=== PATIENT | male | born 1955 | race Caucasian/White ===

== ENCOUNTER → 2018-06-06 | Outpatient (REF) | payer BC ==
[2018-06-06 13:09] LABS: ALBUMIN 3.8 GM/DL (3.2-5.2); ALBUMIN/GLOBULIN RATIO 1.27 (1.00-1.93); ALKALINE PHOSPHATASE 68 U/L (45-117); ALT/SGPT 26 U/L (12-78); ANION GAP 10 MEQ/L (8-16); AST/SGOT 19 U/L (7-37); BILIRUBIN,TOTAL 0.6 MG/DL (0.2-1.0); BLOOD UREA NITROGEN 21 MG/DL (7-18); CALCIUM LEVEL 9.2 MG/DL (8.8-10.2); CARBON DIOXIDE LEVEL 31 MEQ/L (21-32); CHLORIDE LEVEL 105 MEQ/L (98-107); CHOLESTEROL LEVEL 176 MG/DL (<200); CHOLESTEROL RISK RATIO 3.142 (<5); GLOMERULAR FILTRATION RATE > 60.0 (>49); GLUCOSE, FASTING 84 MG/DL (70-100); HDL CHOLESTEROL 56 MG/DL (>40); LDL CHOLESTEROL 104 MG/DL (<100); NON-HDL-C 120 MG/DL; POTASSIUM SERUM 4.8 MEQ/L (3.5-5.1); SODIUM LEVEL 146 MEQ/L (136-145); TOTAL PROTEIN 6.8 GM/DL (6.4-8.2); TRIGLYCERIDES LEVEL 81 MG/DL (<150)
== END ==
LOC: M SFHCCLAY 08:41
DX: R39.12 Poor urinary stream (principal); N52.9 Male erectile dysfunction, unspecified; Z76.89 Persons encountering health services in other specified circumstances; Z13.220 Encounter for screening for lipoid disorders
CPT/HCPCS: 80053

== ENCOUNTER → 2018-06-11 | Outpatient (REF) | payer BC | LOC: M SMT 06-12 13:19 | DX: R97.20 Elevated prostate specific antigen [PSA] (principal) ==

== ENCOUNTER → 2018-06-17 | Outpatient (CLI) | payer BC ==
[~2018-06-17] MED LIST: ISOVUE-370 76% 100ML VIAL (Q9967) As Ordered
== END ==
LOC: M RAD 17:09
DX: R97.20 Elevated prostate specific antigen [PSA] (principal); K76.89 Other specified diseases of liver; N28.1 Cyst of kidney, acquired; N40.0 Benign prostatic hyperplasia without lower urinary tract symptoms; K57.30 Diverticulosis of large intestine without perforation or abscess without bleeding
CPT/HCPCS: Q9967

== ENCOUNTER → 2018-06-25 | Outpatient (CLI) | payer BC | LOC: M SMT PRO 10:02 | DX: C61 Malignant neoplasm of prostate (principal) | CPT/HCPCS: G0416 ==

== ENCOUNTER → 2018-07-02 | Outpatient (CLI) | payer BC | LOC: M RAD 09:30 | DX: R97.20 Elevated prostate specific antigen [PSA] (principal); R63.4 Abnormal weight loss; R39.89 Other symptoms and signs involving the genitourinary system | CPT/HCPCS: 78306 ==

== ENCOUNTER → 2018-07-18 | Outpatient (CLI) | payer BC | LOC: M ONCR 10:00 | DX: C61 Malignant neoplasm of prostate (principal) | CPT/HCPCS: G0463 ==

== ENCOUNTER → 2018-07-23 | Outpatient (CLI) | payer BC | LOC: M SMT 13:55 | DX: C61 Malignant neoplasm of prostate (principal) | CPT/HCPCS: 76872 ==

== ENCOUNTER 2018-09-10 10:33 | Outpatient (RCR) | payer BC ==
[2018-08-15 11:11] LABS: HEMATOCRIT 44.7 % (42.0-52.0); HEMOGLOBIN 14.8 g/dl (13.5-17.5); LYMPH % 35.7 % (24.0-44.0); MEAN CORPUSCULAR HEMOGLOBIN 31.3 pg (27.0-33.0); MEAN CORPUSCULAR HGB CONC 33.1 g/dl (32.0-36.5); MEAN CORPUSCULAR VOLUME 94.6 fl (80.0-96.0); NEUTROPHILS # 2.6 10^3/uL (1.8-7.7); NEUTROPHILS % 54.9 % (36.0-66.0); RED BLOOD COUNT 4.73 10^6/uL (4.30-6.10); WHITE BLOOD COUNT 4.8 10^3/uL (4.0-10.0)
--- NOTE | 2018-08-15 15:28 | RADONC ---
RADIATION ONCOLOGY SIMULATION NOTE DATE: 08/15/2018 CHART NUMBER: [id number] Mr. Will was taken to the CT scan for CT simulation of his prostate field. CT was accomplished without difficulty or discomfort. Radiation treatment planning is underway and radiation treatments will begin subsequently. An immobilization device was created and will be used throughout the course of treatment. It was created without difficulty or discomfort. I was physically present throughout the course of CT simulation.
--- NOTE | 2018-09-03 10:56 | RADONC ---
RADIATION ONCOLOGY PROGRESS NOTE DATE: 09/02/2018 CHART NUMBER: [id number] PROGRESS NOTE: Mr. Will is presently at a dose of 900 cGy to his prostate and is tolerating treatments quite well at this point with no complaints related to his radiation therapy. He is having no urinary or bowel difficulties and no bone pain. REVIEW OF SYSTEMS: The patient's review of systems is noncontributory. Denies nausea, vomiting, fevers, chills, night sweats, diplopia, headaches, anxiety or depression, anorexia, weight loss, visual disturbances, chest pain, urinary or bowel difficulties, bone pain, or neurological problems. PHYSICAL EXAMINATION: The patient's skin is in good condition with no evidence of moist or dry desquamation. The remainder of the physical exam remains unchanged. Mr. Will is tolerating treatments quite well and radiation will continue as scheduled.
--- NOTE | 2018-09-09 12:58 | RADONC ---
RADIATION ONCOLOGY PROGRESS NOTE DATE: 09/09/2018 CHART NUMBER: [id number] Mr. Will is presently at a dose of 1800 cGy to his prostate and is tolerating treatments quite well at this point with no complaints related to his radiation therapy. He is having no urinary or bowel difficulties and no bone pain. REVIEW OF SYSTEMS: The patient's review of systems is noncontributory. He denies nausea, vomiting, fevers, chills, night sweats, diplopia, headaches, anxiety or depression, anorexia, weight loss, visual disturbances, chest pain, urinary or bowel difficulties, bone pain or neurological problems. PHYSICAL EXAMINATION: The patient's skin is in good condition with no evidence of radiation change present. There is no moist or dry desquamation. The remainder of his physical exam remains unchanged. Mr. Will is tolerating treatments quite well and radiation will continue as scheduled.
== END 2018-09-12 ==
LOC: M ONCR 10:33
PROVIDERS: ATTEND Radiology Radiation Oncology
DX: C61 Malignant neoplasm of prostate (principal)

== ENCOUNTER → 2018-10-10 | Outpatient (RCR) | payer BC ==
--- NOTE | 2018-09-17 10:36 | RADONC ---
RADIATION ONCOLOGY PROGRESS NOTE DATE: 09/17/2018 CHART NUMBER: [id number] PROGRESS NOTE: Mr. Will is presently at a dose of 2160 cGy to his prostate and is tolerating treatments quite well at this point with no complaints related to his radiation therapy. He is having no urinary or bowel difficulties and no bone pain. REVIEW OF SYSTEMS: The patient's review of systems is noncontributory. Denies nausea, vomiting, fevers, chills, night sweats, diplopia, headaches, anxiety or depression, anorexia, weight loss, visual disturbances, chest pain, urinary or bowel difficulties, bone pain, or neurological problems. PHYSICAL EXAMINATION: The patient's skin is in good condition with no evidence of moist or dry desquamation. The remainder of his physical exam remains unchanged. Mr. Will is tolerating treatments quite well and radiation will continue as scheduled.
--- NOTE | 2018-09-25 13:13 | RADONC ---
RADIATION ONCOLOGY PROGRESS NOTE DATE OF SERVICE: 09/23/2018 CHART NUMBER: [id number]. PROGRESS NOTE: Mr. Will with a diagnosis of adenocarcinoma of the prostate is receiving local regional radiotherapy, and he has achieved a dose of 3060 cGy of an anticipated 7920 cGy. He is tolerating his radiotherapy reasonably well and denies any nausea, vomiting, diarrhea, dysuria, hematuria, or blood per rectum. The remainder of the review of systems is essentially noncontributory. EXAMINATION FINDINGS: The patient has no evidence of skin erythema nor desquamation. No palpable peripheral lymphadenopathy is appreciated. The remainder of the physical examination is unchanged. IMPRESSION: Tolerating therapy well. PLAN: Treatments to continue. MTDD
--- NOTE | 2018-10-02 07:01 | RADONC ---
RADIATION ONCOLOGY PROGRESS NOTE DATE OF SERVICE: 09/30/2018 CHART NUMBER: [id number]. PROGRESS NOTE: aMrk Will with a diagnosis of adenocarcinoma of prostate is currently receiving local regional radiotherapy, and he is at a dose of 3960 cGy of an anticipated 7920 cGy. REVIEW OF SYSTEMS: The patient denies any nausea, vomiting, dysuria, hematuria, or blood per rectum. He was experiencing some significant dysuria last week and saw Dr. Pierre Doyle who gave him some antibiotics. His dysuria has resolved. His energy level is somewhat diminished, but he is able to maintain most day-to-day activities without any alteration of his lifestyle. Skin irritation is denied. The remainder of the review of systems is noncontributory. EXAMINATION FINDINGS: The skin within the irradiated volume shows no evidence of erythema and certainly no focal desquamation. Lymphatics: No palpable peripheral lymphadenopathy is appreciated. Lungs are clear. The remainder of the physical examination is negative. IMPRESSION: Tolerating therapy reasonably well. PLAN: Treatments to continue. MTDD
[2018-10-07 12:07] LABS: APPEARANCE, URINE CLEAR (CLEAR); BACTERIA, URINE AUTO NEGATIVE (NEGATIVE); BILIRUBIN, URINE AUTO NEGATIVE (NEGATIVE); BLOOD, URINE BLOOD NEGATIVE (NEGATIVE); COLOR, URINE YELLOW (YELLOW); GLUCOSE, URINE (UA) AUTO NEGATIVE (NEGATIVE); KETONE, URINE AUTO NEGATIVE (NEGATIVE); LEUKOCYTE ESTERASE, URINE AUTO NEGATIVE (NEGATIVE); MUCUS, URINE SMALL (NEGATIVE); NITRITE, URINE AUTO NEGATIVE (NEGATIVE); PROTEIN, URINE AUTO NEGATIVE (NEGATIVE); RBC, URINE AUTO 1 /HPF (0-3); SPECIFIC GRAVITY URINE AUTO 1.019 (1.002-1.035); SQUAMOUS EPITHELIAL CELL UR AU 0 /HPF (0-6); UROBILINOGEN, URINE AUTO 0.2 mg/dL (0.0-2.0); WBC, URINE AUTO 0 /HPF (0-3)
--- NOTE | 2018-10-08 07:49 | RADONC ---
RADIATION ONCOLOGY PROGRESS NOTE DATE OF SERVICE: 10/07/2018 CHART #: [id number] Mr. Will is presently at a dose of 4860 cGy to his prostate and is tolerating treatments quite well at this point with no significant difficulties related to his radiation therapy other than urinary frequency. He reports that he urinates approximately every 1-1/2 hours at night. REVIEW OF SYSTEMS: The patient's review of systems is positive for his urinary frequency, but is otherwise noncontributory. Denies nausea, vomiting, fevers, chills, night sweats, diplopia, headaches, anxiety or depression, anorexia, weight loss, visual disturbances, chest pain, urinary or bowel difficulties, bone pain, or neurological problems. PHYSICAL EXAMINATION: The patient's skin is in good condition with no evidence of radiation change present. There is no moist or dry desquamation. The remainder of his physical exam remains unchanged. Mr. Will is tolerating treatments quite well and radiation will continue as scheduled.
== END ==
LOC: M ONCR 09-16 10:57
PROVIDERS: ATTEND Radiology Radiation Oncology
DX: C61 Malignant neoplasm of prostate (principal)

== ENCOUNTER 2018-10-30 11:00 | Outpatient (RCR) | payer BC ==
--- NOTE | 2018-10-15 10:04 | RADONC ---
RADIATION ONCOLOGY PROGRESS NOTE DATE: 10/14/2018 CHART NUMBER: [id number] Mr. Will is presently at a dose of 5760 cGy to his prostate and is tolerating his treatments quite well at this point with no significant difficulties related to his radiation therapy other than urinary frequency. The patient's review of systems is positive for urinary frequency but is otherwise noncontributory. He denies nausea, vomiting, fevers, chills, night sweats, diplopia, headaches, anxiety or depression, anorexia, weight loss, visual disturbances, chest pain, urinary or bowel difficulties, bone pain, or neurological problems. PHYSICAL EXAMINATION: The patient's skin is in good condition with no evidence of radiation change present. There is no moist or dry desquamation. The remainder of his physical exam remains unchanged. Mr. Will is tolerating treatments quite well and radiation will continue as scheduled.
--- NOTE | 2018-10-22 15:42 | RADONC ---
RADIATION ONCOLOGY PROGRESS NOTE DATE: 10/21/2018 CHART NUMBER: [id number] PROGRESS NOTE: Mr. Will is presently at a dose of 6660 cGy to his prostate and is tolerating treatments quite well at this point with no complaints related to his radiation therapy. He is having no urinary or bowel difficulties and no bone pain. REVIEW OF SYSTEMS: The patient's review of systems is noncontributory. Denies nausea, vomiting, fevers, chills, night sweats, diplopia, headaches, anxiety or depression, anorexia, weight loss, visual disturbances, chest pain, urinary or bowel difficulties, bone pain, or neurological problems. PHYSICAL EXAMINATION: The patient's skin is in good condition with no evidence of radiation change present. There is no moist or dry desquamation. The remainder of his physical exam remains unchanged. Mr. Will is tolerating his treatments quite well and radiation will continue as scheduled.
--- NOTE | 2018-10-29 08:15 | RADONC ---
RADIATION ONCOLOGY PROGRESS NOTE DATE: 10/28/2018 CHART NUMBER: [id number] PROGRESS NOTE: Mr. Will is presently a dose of 7560 cGy to his prostate and is tolerating his treatments with some difficulty in urinary discomfort. He also has urinary incontinence secondary to his urgency. REVIEW OF SYSTEMS: The patient's review of systems is positive for his urinary burning but is otherwise noncontributory. patient's review of systems is noncontributory. Denies nausea, vomiting, fevers, chills, night sweats, diplopia, headaches, anxiety or depression, anorexia, weight loss, visual disturbances, chest pain, urinary or bowel difficulties, bone pain, or neurological problems. PHYSICAL EXAMINATION: The patient's skin is in good condition with no evidence of moist or dry desquamation. The remainder of his physical exam remains unchanged. Mr. Will is tolerating his treatments with some difficulty. I have offered him pain medication but he would does not wish to try any. In the meantime, he is approaching completion of treatment. He has been instructed to drink more fluids to dilute out his urine, which may help somewhat.
--- NOTE | 2018-10-31 10:04 | RADONC ---
RADIATION ONCOLOGY TREATMENT SUMMARY: DATE: 10/30/2018 CHART NUMBER: [id number] DIAGNOSIS: Prostate cancer. STAGE: III A, T 2cN0,M0, PSA 255, Shaina score 8 (4-4) grade group 4. ECOG PERFORMANCE STATUS: 0 Mr. Will is a very pleasant 63-year-old white male with the diagnosis of what appears to be a stage III A, [id number], poorly differentiated [place] score 8 (4-4) adenocarcinoma of the prostate with a PSA level at 255 who presented to us for consideration of definitive external beam radiation therapy with IMRT/IGRT. We treated the patient to his prostate for a total dose of 7920 cGy delivered in 44 fractions of 180 cGy each over 62 elapsed days from 08/27/2018 through . The patient's prostate was treated on a linear accelerator utilizing a 6X photon beam via IMRT/IGRT. We initially treated the prostate, seminal vesicles and first echelon of lymph nodes for a dose of 4500 cGy and subsequently delivered an additional 900 cGy to the prostate and seminal vesicles bringing the seminal vesicles to a total dose of 5400 cGy. We then delivered in an additional 2520 cGy to the prostate itself bringing it once again to a total dose of 7920 cGy. Mr. Will tolerated his treatments quite well although he did have burning urination and some mild blood in the urine. Urinalysis was undertaken and no sign of infection was seen. The patient was able to complete without interruption. I have scheduled the patient to see me again in 1 month for further followup. He will also continue to be followed by his other physicians as well. cc: MD Brittney Arnold DO
== END 2018-11-10 ==
LOC: M ONCR 11:00
PROVIDERS: ATTEND Radiology Radiation Oncology
DX: C61 Malignant neoplasm of prostate (principal)

== ENCOUNTER → 2018-11-26 | Outpatient (CLI) | payer BC | LOC: M SMT 11:10 | PROVIDERS: ATTEND Urology | DX: C61 Malignant neoplasm of prostate (principal); R30.0 Dysuria ==

== ENCOUNTER → 2018-12-11 | Outpatient (CLI) | payer BC ==
--- NOTE | 2018-12-12 11:14 | RADONC ---
RADIATION ONCOLOGY FOLLOWUP NOTE DATE: 12/11/2018 CHART NUMBER: [id number] DIAGNOSIS: Prostate cancer. STAGE: III A, TcN0M0, PSA 255, Shaina score 8 (4-4), grade group 4. ECOG PERFORMANCE STATUS: 0 FOLLOWUP NOTE: Mr. Will is a 63-year-old white male with the diagnosis of what appears to be a stage III A, TcN0M0, poorly differentiated, Shaina score 8 (4-4) adenocarcinoma of prostate with initial PSA level of 155, who is presenting to us today for routine followup visit 1 month post completion of external beam radiation therapy. REVIEW OF SYSTEMS: The patient presents today reporting that he is doing quite well with no complaints at this time related to his radiation therapy or disease. He has no urinary or bowel difficulties. No significant bone pain other than continued back pain, which his says has been a little worse recently. His review of systems is noncontributory. Denies nausea, vomiting, fevers, chills, night sweats, diplopia, headaches, anxiety or depression, anorexia, weight loss, visual disturbances, chest pain, urinary or bowel difficulties, bone pain, or neurological problems. PHYSICAL EXAMINATION: The patient is a well-developed, well-nourished male in no acute distress. HEENT exam is normocephalic, atraumatic. Extraocular movements are intact. There is no palpable cervical, supraclavicular, infraclavicular, axillary, or inguinal lymphadenopathy present. Lungs are clear to auscultation and percussion. Heart has a regular rate and rhythm. Abdomen is benign with no hepatosplenomegaly, masses, or tenderness. Rectal examination reveals a normal anal sphincter tone. His prostate is smooth with no evidence of nodularity. Skeletal examination reveals no tenderness to pressure or percussion of the bony skeleton. Extremities reveal no clubbing, cyanosis, or edema. Neurologic exam is grossly intact, as is the remainder of the physical examination. ASSESSMENT: The patient is clinically doing well at this time. His PSA done 11/26/2018, however is 35.70. This is much lower than his original PSA but is still quite elevated. A bone scan as well as a CT scan were done recently for further evaluation. The CT scan done 12/02/2018 showed sclerotic areas in the L2 and L3 vertebral bodies which are atypical for a degenerative endplate change. They were thought to possibly represent metastatic disease. A bone scan, however was done on 12/02/2018 as well and showed no evidence of metastatic disease. In light of these conflicting reports, I am ordering an MRI to be done of the lumbosacral spine region. The does report that his pain has been worse over the last several months. In the meantime, I have also set him up for followup in our office following the MRI scan. cc: MD Brittney Arnold,
== END ==
LOC: M ONCR 11:13
PROVIDERS: ATTEND Radiology Radiation Oncology
DX: C61 Malignant neoplasm of prostate (principal)

== ENCOUNTER → 2018-12-16 | Outpatient (CLI) | payer BC ==
[~2018-12-16] MED LIST changes: -ISOVUE-370 76% 100ML VIAL (Q9967) As Ordered; +PROHANCE 279.3MG/ML 15ML VIAL (A9576) As Ordered ONE; +PROHANCE 279.3MG/ML 5ML VIAL (A9576) As Ordered ONE
--- NOTE | 2018-12-17 09:19 | REP ---
MRI LUMBAR SPINE WITHOUT AND WITH IV CONTRAST: HISTORY: Prostate carcinoma. Back pain. TECHNIQUE: Sagittal and axial T1- and T2-weighted scans are acquired in the usual fashion with and without fat saturation. Sequences include spin echo, turbo spin-echo, and STIR imaging sequences. 20 mL of intravenous Isovue 370 is administered. MRI FINDINGS: Lumbar vertebral body heights are preserved. Alignment is normal. There is diffuse degenerative disc disease and spondylosis change. There are reactive marrow changes associated with this but there is no MR evidence to suggest skeletal metastatic disease. No extra vertebral mass or adenopathy is observed. No suspicious gadolinium enhancement is appreciated. Axial and sagittal images at the L5-S1 disc level show a minimal 2 mm degenerative retrolisthesis. No disc protrusion is seen. No neural foraminal encroachment is seen. There is mild bilateral facet hypertrophy. At L4-5, there is mild diffuse disc bulging which effaces the ventral margin of the thecal sac. No central canal stenosis is noted. Bilateral facet hypertrophy and mild ligamentum flavum hypertrophy are seen. There is minimal narrowing of the neural foramina bilaterally at L4-5. At L3-4, there is diffuse disc bulging. Mild facet hypertrophy is noted. There is a left foraminal disc bulge producing mild left neural foraminal narrowing. At L2-3, there is diffuse disc bulging effacing the ventral subarachnoid space. No neural foraminal encroachment or central canal stenosis is noted. At the L1-2 level there is mild diffuse disc bulging. No other finding. The tip of the conus medullaris is normal in position and appearance at L1. IMPRESSION: Degenerative spondylosis changes as above with multiple diffusely bulging discs and bilateral osteoarthritic facet hypertrophy. Mild neural foraminal narrowing at the L4-5 and L3-4 as above. No evidence to suggest skeletal metastatic disease. Electronically Signed by Sukhwinder Koch MD 12/17/2018 10:44 A
== END ==
LOC: M RAD 17:48
PROVIDERS: ATTEND Radiology Radiation Oncology
DX: M51.26 Other intervertebral disc displacement, lumbar region (principal); M51.36 Other intervertebral disc degeneration, lumbar region; M51.37 Other intervertebral disc degeneration, lumbosacral region
CPT/HCPCS: 72158; A9576

== ENCOUNTER → 2018-12-18 | Outpatient (CLI) | payer BC ==
--- NOTE | 2018-12-19 10:24 | RADONC ---
RADIATION ONCOLOGY FOLLOWUP NOTE: DATE: 12/18/2018 CHART NUMBER: [id number] DIAGNOSIS: Prostate cancer. STAGE: III A, T2c, N0, M0, PSA 255, Shaina score 8 (4-4) grade group 4 ECOG PERFORMANCE STATUS: 0 Mr. Will is a very pleasant 63-year-old white male with the diagnosis of what appears to be a stage III A, T2c, N0, M0 poorly differentiated [place] score 8 (4-4) adenocarcinoma of the prostate with a PSA level of 255, who is presenting to us today for discussion of his MRI done 12/16/2018. I reviewed the patient's results with him and clearly they showed degenerative changes. There is absolutely no evidence of metastatic lesions throughout the spine. REVIEW OF SYSTEMS: The patient's review of systems is positive for continued long-term back pain, which is basically unchanged but is otherwise noncontributory except for some urinary frequency. He denies nausea, vomiting, fevers, chills, night sweats, diplopia, headaches, anxiety or depression, anorexia, weight loss, visual disturbances, chest pain, urinary or bowel difficulties, bone pain, or neurological problems. Physical exam was deferred at this time as he just had a followup and rectal examination with me that was on 12/11/2018. ASSESSMENT: The patient is clinically doing quite well at this time and I have scheduled him to see me again in 6 months for further followup. He is also scheduled to see his urologist Dr. Doyle in January. cc: Brittney Lizarraga,
== END ==
LOC: M ONCR 11:11
PROVIDERS: ATTEND Radiology Radiation Oncology
DX: C61 Malignant neoplasm of prostate (principal)

== ENCOUNTER → 2019-01-02 | Outpatient (REF) | payer BC | LOC: M SFHCPLAZ 17:31 | PROVIDERS: ATTEND Dermatology | DX: D22.5 Melanocytic nevi of trunk (principal) ==

== ENCOUNTER → 2019-01-20 | Outpatient (REF) | payer BC | LOC: M SFHCCLAY 09:10 | PROVIDERS: ATTEND Urology | DX: C61 Malignant neoplasm of prostate (principal) ==

== ENCOUNTER → 2019-03-19 | Outpatient (CLI) | payer MEDICARE, BC ==
[2019-03-19 17:56] LABS: PROSTATIC SPECIFIC AG MONITOR 14.2 NG/ML (< 4.00)
== END ==
LOC: M SMT 15:40
PROVIDERS: ATTEND Urology
DX: C61 Malignant neoplasm of prostate (principal); R35.0 Frequency of micturition
CPT/HCPCS: 36415; 84153; 84403; 87086; G0463

== ENCOUNTER → 2019-03-19 | Outpatient (REF) | payer BC | LOC: M SMT 17:19 | PROVIDERS: ATTEND Urology | DX: R35.0 Frequency of micturition (principal) ==

== ENCOUNTER → 2019-03-20 | Outpatient (REF) | payer MEDICARE, BC | LOC: M SFHCCLAY 13:28 | PROVIDERS: ATTEND Family Medicine | DX: F32.1 Major depressive disorder, single episode, moderate (principal); F41.9 Anxiety disorder, unspecified | CPT/HCPCS: 84443; G0463 ==

== ENCOUNTER → 2019-05-13 | Outpatient (REF) | payer MEDICARE, BC | LOC: M SFHCCLAY 10:10 | PROVIDERS: ATTEND Urology | DX: C61 Malignant neoplasm of prostate (principal) ==

== ENCOUNTER → 2019-06-09 | Outpatient (REF) | payer MEDICARE, BC | LOC: M LABDRAWC 16:01 | PROVIDERS: ATTEND Radiology Radiation Oncology | DX: C61 Malignant neoplasm of prostate (principal) ==

== ENCOUNTER → 2019-06-18 | Outpatient (CLI) | payer BC, MEDICARE ==
--- NOTE | 2019-06-18 15:39 | RADONC ---
RADIATION ONCOLOGY FOLLOWUP NOTE DATE: 06/18/2019 CHART NUMBER: [id number] DIAGNOSIS: Prostate cancer. STAGE: IIIA, T2c, N0, M0, PSA 255, Shaina score 8(4+4) grade group 4. ECOG PERFORMANCE STATUS: 0. Mr. Will is a very nice 63-year-old man with a diagnosis of adenocarcinoma of the prostate poorly differentiated with a [place] score of 8 (4+4) and a PSA of 255. He returns today for a followup. He completed his course of radiotherapy on 11/07/2018. He was treated with IMRT/IGRT. REVIEW OF SYSTEMS: The patient's main complaint is that of frequency. He claims that he is awake every 2 hours to urinate, but he does not have any pain when he urinates and he does not have any incontinence. His energy level is such that he is able to maintain many day-to-day activities and is employed as a bus transportation manager. He does claim that getting up every 2 hours from his sleep at night is somewhat bothersome to him but he denies any nausea, vomiting, diarrhea, dysuria, hematuria or blood per rectum. His energy level is adequate and he is able to maintain a fairly normal lifestyle with the exception of the frequency. A PSA value obtained on 06/09/2019 revealed a level of 9.50. He also denies any visual disturbances, chest pain, urinary or bowel problems, bone pain or neurologic issues. PHYSICAL EXAMINATION: HEENT: Normocephalic. EOMs intact. PERRLA. Fundi benign. Lymphatics: No palpable peripheral lymphadenopathy is appreciated. Lungs are clear. Abdomen without evidence of significant hepatomegaly, masses, deep abdominal tenderness. Extremities without cyanosis, clubbing or edema. Neurologic examination appears to be physiologic. Rectal examination deferred today because of his continued lowering PSA values. IMPRESSION: The patient is clinically stable at this time with continued decrease of his PSA. PLAN: I informed him that Dr. Cornejo would be retiring in the near future and that he might want to go back to see his urologist, Dr. Pierre Doyle, for continued followup as I had a discussion with Dr. Cornejo earlier and it was his intention to make sure that his patients in the future would be followed up with a physician such as their urologists. I believe that is a good suggestion, his other alternative would be to followup with the doctor who will be replacing Dr. Cornejo. The seemed fairly distressed that no one will give a more definitive answer as to the status of her but I explained to her that the PSA continues to go down which is a good sign and when it hits a sarthak or low point that we will continue to obtain PSA values and measure those PSA values in reference to his sarthak to determine whether or not there is control of tumor. If the PSA rises precipitously obviously that would be a sign of concern, however, if it continues to go down or remains stable that we would consider his clinical status stable at this point which is a good event. I tried to some of her concerns and anxieties about the situation. She is more than welcome to return and discuss any concerns she has with Dr. Cornejo in the future. As it stands now they will continue their followup visit with Dr. Pierre Doyle when Dr. Cornejo retires.
== END ==
LOC: M ONCR 11:14
PROVIDERS: ATTEND Radiology Radiation Oncology
DX: C61 Malignant neoplasm of prostate (principal)

== ENCOUNTER → 2019-07-30 | Outpatient (REF) | payer MEDICARE, BC | LOC: M SFHCCLAY 11:16 | PROVIDERS: ATTEND Urology | DX: C61 Malignant neoplasm of prostate (principal) ==

== ENCOUNTER → 2019-08-01 | Outpatient (REF) | payer MEDICARE, BC | LOC: M SMT 17:01 | PROVIDERS: ATTEND Urology | DX: R39.15 Urgency of urination (principal); C61 Malignant neoplasm of prostate | CPT/HCPCS: 87086; 96402; G0463; J9217 ==

== ENCOUNTER → 2019-09-12 | Outpatient (REF) | payer MEDICARE, BC ==
[2019-09-12 12:34] LABS: BLOOD UREA NITROGEN 20 MG/DL (7-18); CARBON DIOXIDE LEVEL 31 MEQ/L (21-32); CHLORIDE LEVEL 107 MEQ/L (98-107); CHOLESTEROL LEVEL 212 MG/DL (<200); CHOLESTEROL RISK RATIO 3.419 (<5); CREATININE FOR GFR 0.83 MG/DL (0.70-1.30); GLOMERULAR FILTRATION RATE > 60.0 (>49); GLUCOSE, FASTING 91 MG/DL (70-100); HDL CHOLESTEROL 62 MG/DL (>40); LDL CHOLESTEROL 132 MG/DL (<100); NON-HDL-C 150 MG/DL; POTASSIUM SERUM 4.5 MEQ/L (3.5-5.1); SODIUM LEVEL 140 MEQ/L (136-145); TRIGLYCERIDES LEVEL 91 MG/DL (<150)
== END ==
LOC: M SFHCCLAY 09:11
PROVIDERS: ATTEND Family Medicine
DX: Z00.00 Encounter for general adult medical examination without abnormal findings (principal); E78.5 Hyperlipidemia, unspecified; Z13.1 Encounter for screening for diabetes mellitus; Z11.59 Encounter for screening for other viral diseases
CPT/HCPCS: 80048; 80061; G0472

== ENCOUNTER → 2019-09-18 | Outpatient (CLI) | payer MEDICARE, BC ==
--- NOTE | 2019-09-18 09:52 | REP ---
Abdominal aorta ultrasound: Abdominal Aortic Measurements are as follows: Proximal 2.0 cm AP 2.6 cm TRV Renal Artery Level 1.8 cm AP 2.2. cm TRV Mid Aorta 1.7 cm AP 2.0 cm TRV Distal Aorta 1.6 cm AP 1.8 cm TRV R Iliac Artery 1.2 cm AP 0.9 cm TRV L Iliac Artery 1.0 cm AP 1.0 cm TRV Impression: There is no abdominal aortic aneurysm. Electronically Signed by Otf Boyer MD 09/18/2019 09:42 A
== END ==
LOC: M RAD 09:02
PROVIDERS: ATTEND Family Medicine
DX: I71.4 Abdominal aortic aneurysm, without rupture (principal)

== ENCOUNTER 2019-10-15 08:23 | Day surgery (SDC) | payer OTHER, MEDICARE, BC ==
[~2019-10-15] VITALS: Ht 188 cm; Wt 103.0 kg
[~2019-10-15 08:23] MED LIST changes: +KS I200C PO; +MYRB50TA PO; +NS 1,000 ML IV ONE; -PROHANCE 279.3MG/ML 15ML VIAL (A9576) As Ordered ONE; -PROHANCE 279.3MG/ML 5ML VIAL (A9576) As Ordered ONE; +ZOLO50TA PO
[2019-10-15] MEDS ORDERED: LIDOCAINE 2% INJ 100 MG/5 ML SDV (FOR ANES.) As Ordered ONE (08:59)
[2019-10-15] MEDS ORDERED: propofoL 200 MG/20 ML VIAL As Ordered ONE (08:59)
[2019-10-15] MEDS ORDERED: LIPI80TA PO (09:07)
--- NOTE | 2019-10-15 10:14 | ROOR ---
Patient Name: Mark Will Procedure Date: 10/15/2019 9:48 AM Date of : 1955 Age: 64 Room: [facility] Gender: Male Note Status: Finalized Procedure: Colonoscopy Indications: Screening for colorectal malignant neoplasm Providers: Otf Aparicio DO Referring MD: Brittney IQBAL DO Requesting Provider: Medicines: Propofol per Anesthesia Complications: No immediate complications. Procedure: Pre-Anesthesia Assessment: - Prior to the procedure, a History and Physical was performed, and patient medications and allergies were reviewed. The patient is competent. The risks and benefits of the procedure and the sedation options and risks were discussed with the patient. All questions were answered and informed consent was obtained. Patient identification and proposed procedure were verified by the physician, the nurse, the anesthesiologist and the public address technician in the endoscopy suite. Mental Status Examination: alert and oriented. Airway Examination: normal oropharyngeal airway and neck mobility. Respiratory Examination: clear to auscultation. CV Examination: normal. Prophylactic Antibiotics: The patient does not require prophylactic antibiotics. Prior Anticoagulants: The patient has taken no previous anticoagulant or antiplatelet agents. ASA Grade Assessment: II - A patient with mild systemic disease. After reviewing the risks and benefits, the patient was deemed in satisfactory condition to undergo the procedure. The anesthesia plan was to use monitored anesthesia care (MAC). Immediately prior to administration of medications, the patient was re-assessed for adequacy to receive sedatives. The heart rate, respiratory rate, oxygen saturations, blood pressure, adequacy of pulmonary ventilation, and response to care were monitored throughout the procedure. The physical status of the patient was re-assessed after the procedure. The Colonoscope was introduced through the anus and advanced to the cecum, identified by appendiceal orifice and ileocecal valve. The colonoscopy was performed without difficulty. The patient tolerated the procedure well. Findings: Non-bleeding internal hemorrhoids were found during retroflexion. The hemorrhoids were mild and Grade I (internal hemorrhoids that do not prolapse). Estimated blood loss: none. Diffuse mild inflammation was found in the rectum. A 12 mm polyp was found in the ascending colon. The polyp was carpet-like. The polyp was removed with a jumbo cold forceps. Resection and retrieval were complete. Estimated blood loss was minimal. Multiple small and large-mouthed diverticula were found in the sigmoid colon. The exam was otherwise without abnormality on direct and retroflexion views. Impression: - Non-bleeding internal hemorrhoids. 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 - One 12 mm polyp in the ascending colon, removed with a jumbo cold forceps. Resected and retrieved. - Diverticulosis in the sigmoid colon. - The examination was otherwise normal on direct and retroflexion views. Recommendation: - Patient has a contact number available for emergencies. The signs and symptoms of potential delayed complications were discussed with the patient. Return to normal activities tomorrow. Written discharge instructions were provided to the patient. - Repeat colonoscopy in 3 - 5 years for surveillance based on pathology results. - Return to my office at appointment to be scheduled. - Await pathology results. Otf Aparicio DO 10/15/2019 10:13:36 AM Electronically signed by Otf Aparicio DO Number of Addenda: 0 Note Initiated On: 10/15/2019 9:48 AM Estimated Blood Loss: Estimated blood loss was minimal.
[2019-10-15 10:25] VITALS: BP 117/87
== END 2019-10-15 10:38 | disposition home or self-care (01) ==
LOC: M OPP 08:23
PROVIDERS: ATTEND Surgery
DX: Z12.11 Encounter for screening for malignant neoplasm of colon (principal); K64.0 First degree hemorrhoids; D12.2 Benign neoplasm of ascending colon; K57.30 Diverticulosis of large intestine without perforation or abscess without bleeding; Z79.899 Other long term (current) drug therapy; Z85.46 Personal history of malignant neoplasm of prostate; Z92.3 Personal history of irradiation

== ENCOUNTER → 2019-11-04 | Outpatient (REF) | payer MEDICARE, BC ==
[~2019-11-04] MED LIST changes: +LIPI80TA PO; -NS 1,000 ML IV ONE
== END ==
LOC: M SFHCCLAY 10:35
PROVIDERS: ATTEND Urology
DX: C61 Malignant neoplasm of prostate (principal)

== ENCOUNTER → 2020-01-27 | Outpatient (REF) | payer MEDICARE, BC ==
[~2020-01-27] MED LIST changes: +IBUP200C88 PO; -KS I200C PO
== END ==
LOC: M SFHCCLAY 14:18
PROVIDERS: ATTEND Urology
DX: C61 Malignant neoplasm of prostate (principal)

== ENCOUNTER → 2020-05-05 | Outpatient (REF) | payer MEDICARE, BC | LOC: M LABDRAWC 11:42 | PROVIDERS: ATTEND Urology | DX: C61 Malignant neoplasm of prostate (principal) ==

== ENCOUNTER → 2020-07-27 | Outpatient (REF) | payer MEDICARE, BC | LOC: M SFHCCLAY 08:34 | PROVIDERS: ATTEND Urology | DX: C61 Malignant neoplasm of prostate (principal) ==

== ENCOUNTER → 2020-10-29 | Outpatient (REF) | payer MEDICARE, BC | LOC: M SFHCCLAY 10:55 | PROVIDERS: ATTEND Urology | DX: C61 Malignant neoplasm of prostate (principal) ==

== ENCOUNTER → 2021-01-26 | Outpatient (REF) | payer MEDICARE, BC | LOC: M SFHCCLAY 15:11 | PROVIDERS: ATTEND Urology | DX: C61 Malignant neoplasm of prostate (principal) ==

== ENCOUNTER → 2021-05-10 | Outpatient (REF) | payer MEDICARE, BC | LOC: M SFHCCLAY 09:47 | PROVIDERS: ATTEND Urology | DX: C61 Malignant neoplasm of prostate (principal) ==

== ENCOUNTER → 2021-08-10 | Outpatient (REF) | payer MEDICARE, BC | LOC: M SFHCCLAY 13:50 | PROVIDERS: ATTEND Urology | DX: C61 Malignant neoplasm of prostate (principal) ==

== ENCOUNTER → 2022-01-26 | Outpatient (REF) | payer MEDICARE, BC ==
[2022-01-26 12:05] LABS: ALBUMIN 3.6 GM/DL (3.2-5.2); ALT/SGPT 30 U/L (12-78); BILIRUBIN,TOTAL 0.3 MG/DL (0.2-1.0); BLOOD UREA NITROGEN 22 MG/DL (7-18); CALCIUM LEVEL 9.3 MG/DL (8.8-10.2); CARBON DIOXIDE LEVEL 27 MEQ/L (21-32); CHLORIDE LEVEL 107 MEQ/L (98-107); CHOLESTEROL LEVEL 176 MG/DL (<200); CHOLESTEROL RISK RATIO 4.093 (<5); CREATININE FOR GFR 0.94 MG/DL (0.70-1.30); FREE T4 1.05 NG/DL (0.76-1.46); GLOMERULAR FILTRATION RATE > 60.0 (>49); GLUCOSE, FASTING 105 MG/DL (70-100); HDL CHOLESTEROL 43 MG/DL (>40); LDL CHOLESTEROL 117 MG/DL (<100); NON-HDL-C 133 MG/DL; POTASSIUM SERUM 4.6 MEQ/L (3.5-5.1); SODIUM LEVEL 139 MEQ/L (136-145); TOTAL PROTEIN 6.7 GM/DL (6.4-8.2); TRIGLYCERIDES LEVEL 78 MG/DL (<150)
== END ==
LOC: M SFHCCLAY 08:41
PROVIDERS: ATTEND Family Medicine
DX: E66.09 Other obesity due to excess calories (principal); Z68.31 Body mass index [BMI] 31.0-31.9, adult; Z13.220 Encounter for screening for lipoid disorders; Z13.1 Encounter for screening for diabetes mellitus; Z12.11 Encounter for screening for malignant neoplasm of colon; E07.9 Disorder of thyroid, unspecified

== ENCOUNTER → 2022-02-15 | Outpatient (REF) | payer MEDICARE, BC | LOC: M SFHCCLAY 09:48 | PROVIDERS: ATTEND Urology | DX: C61 Malignant neoplasm of prostate (principal) ==

== ENCOUNTER → 2022-04-03 | Outpatient (REF) | payer MEDICARE, BC | LOC: M SFHCCLAY 11:25 | PROVIDERS: ATTEND Urology | DX: C61 Malignant neoplasm of prostate (principal) ==

== ENCOUNTER → 2022-05-19 | Outpatient (REF) | payer MEDICARE, BC | LOC: M SFHCCLAY 08:47 | PROVIDERS: ATTEND Urology | DX: C61 Malignant neoplasm of prostate (principal) ==

== ENCOUNTER → 2022-06-28 | Outpatient (REF) | payer MEDICARE, BC | LOC: M SFHCCLAY 10:35 | PROVIDERS: ATTEND Urology | DX: C61 Malignant neoplasm of prostate (principal) ==

== ENCOUNTER → 2022-07-05 | Outpatient (REF) | payer MEDICARE, BC ==
[2022-07-05 17:28] LABS: HEMOGLOBIN 14.8 g/dl (13.5-17.5); MEAN CORPUSCULAR HGB CONC 32.9 g/dl (32.0-36.5); MEAN CORPUSCULAR VOLUME 91.1 fl (80.0-96.0); PLATELET COUNT, AUTOMATED 173 10^3/uL (150-450); RED BLOOD COUNT 4.94 10^6/uL (4.30-6.10); WHITE BLOOD COUNT 5.4 10^3/uL (4.0-10.0)
[2022-07-05 18:04] LABS: ALBUMIN 3.6 G/DL (3.2-5.2); ALT/SGPT 20 U/L (7.0-40); BILIRUBIN,TOTAL 0.3 MG/DL (0.3-1.2); BLOOD UREA NITROGEN 23 MG/DL (9-23); CALCIUM LEVEL 8.9 MG/DL (8.3-10.6); CARBON DIOXIDE LEVEL 28 MMOL/L (20-31); CHLORIDE LEVEL 101 MMOL/L (98-107); CHOLESTEROL LEVEL 168 MG/DL (<200); CHOLESTEROL RISK RATIO 3.86 (<5); CREATININE FOR GFR 0.81 MG/DL (0.70-1.30); GLOMERULAR FILTRATION RATE > 60.0 (>49); GLUCOSE, FASTING 84 MG/DL (74-106); HDL CHOLESTEROL 43.5 MG/DL (>40); LDL CHOLESTEROL 96.1 MG/DL (<100); NON-HDL-C 125 MG/DL; POTASSIUM SERUM 4.4 MMOL/L (3.5-5.1); SODIUM LEVEL 137 MMOL/L (136-145); TOTAL PROTEIN 6.3 G/DL (5.7-8.2); TRIGLYCERIDES LEVEL 142 MG/DL (<150)
== END ==
LOC: M LABDRWCV 16:59
PROVIDERS: ATTEND Nurse Practitioner Family
DX: E78.5 Hyperlipidemia, unspecified (principal); E66.09 Other obesity due to excess calories

== ENCOUNTER → 2022-08-08 | Outpatient (CLI) | payer MEDICARE, BC ==
[~2022-08-08] MED LIST changes: +GASTROGRAFIN SOLUTION 30ML As Ordered ONE; +ISOVUE-370 76% 100ML VIAL As Ordered ONE
== END ==
LOC: M RAD 11:30
PROVIDERS: ATTEND Nurse Practitioner Family
DX: K59.00 Constipation, unspecified (principal)
CPT/HCPCS: 74178; Q9963; Q9967

== ENCOUNTER → 2022-08-16 | Outpatient (CLI) | payer MEDICARE, BC ==
[~2022-08-16] MED LIST changes: +DOCU100C16 PO; +FLEEENE12 PR; -GASTROGRAFIN SOLUTION 30ML As Ordered ONE; -ISOVUE-370 76% 100ML VIAL As Ordered ONE; +MIRA3350 PO; +MOM30SS PO; +PHEN15CA6 PO; +PRED5PAK2 PO; +VENL75CA47 PO; +ZYTI250T PO
== END ==
LOC: M ONCR 09:03
PROVIDERS: ATTEND General Practice
DX: C61 Malignant neoplasm of prostate (principal); R59.0 Localized enlarged lymph nodes; Z79.1 Long term (current) use of non-steroidal anti-inflammatories (NSAID); Z79.52 Long term (current) use of systemic steroids; Z79.818 Long term (current) use of other agents affecting estrogen receptors and estrogen levels; Z79.899 Other long term (current) drug therapy; Z80.0 Family history of malignant neoplasm of digestive organs; Z80.41 Family history of malignant neoplasm of ovary; Z80.8 Family history of malignant neoplasm of other organs or systems; Z87.891 Personal history of nicotine dependence; Z92.3 Personal history of irradiation

== ENCOUNTER → 2022-08-17 | Outpatient (REF) | payer MEDICARE, BC ==
[2022-08-17 12:05] LABS: PROSTATIC SPECIFIC AG MONITOR 1.58 NG/ML (< 4.00)
[2022-08-17 12:08] LABS: ALBUMIN 3.5 G/DL (3.2-5.2); ALKALINE PHOSPHATASE 97 U/L (46-116); ALT/SGPT 20 U/L (7.0-40); AST/SGOT 24 U/L (<34); BILIRUBIN,TOTAL 0.3 MG/DL (0.3-1.2); BLOOD UREA NITROGEN 20 MG/DL (9-23); CALCIUM LEVEL 9.1 MG/DL (8.3-10.6); CARBON DIOXIDE LEVEL 27 MMOL/L (20-31); CHLORIDE LEVEL 104 MMOL/L (98-107); CREATININE FOR GFR 0.85 MG/DL (0.70-1.30); GLOMERULAR FILTRATION RATE > 60.0 (>49); GLUCOSE, FASTING 92 MG/DL (74-106); POTASSIUM SERUM 4.2 MMOL/L (3.5-5.1); SODIUM LEVEL 140 MMOL/L (136-145); TOTAL PROTEIN 6.2 G/DL (5.7-8.2)
[2022-08-17 12:09] LABS: TESTOSTERONE 16 NG/DL (241-827)
== END ==
LOC: M LABDRAWC 11:15
PROVIDERS: ATTEND General Practice
DX: C61 Malignant neoplasm of prostate (principal)

== ENCOUNTER 2022-08-28 12:54 | Outpatient (RCR) | payer MEDICARE, BC | END 2022-09-12 | LOC: M ONCR 12:54 | PROVIDERS: ATTEND General Practice | DX: C61 Malignant neoplasm of prostate (principal) ==

== ENCOUNTER → 2022-10-10 | Outpatient (RCR) | payer MEDICARE, BC ==
[2022-09-26 12:39] LABS: ALBUMIN 3.4 G/DL (3.2-5.2); ALKALINE PHOSPHATASE 90 U/L (46-116); ALT/SGPT 18 U/L (7.0-40); AST/SGOT 24 U/L (<34); BILIRUBIN,TOTAL 0.5 MG/DL (0.3-1.2); BLOOD UREA NITROGEN 21 MG/DL (9-23); CALCIUM LEVEL 9.2 MG/DL (8.3-10.6); CARBON DIOXIDE LEVEL 29 MMOL/L (20-31); CHLORIDE LEVEL 105 MMOL/L (98-107); CREATININE FOR GFR 0.73 MG/DL (0.70-1.30); GLOMERULAR FILTRATION RATE > 60.0 (>49); GLUCOSE, FASTING 72 MG/DL (74-106); POTASSIUM SERUM 4.1 MMOL/L (3.5-5.1); SODIUM LEVEL 139 MMOL/L (136-145); TOTAL PROTEIN 6.3 G/DL (5.7-8.2)
[~2022-10-10] MED LIST changes: +ABIR250T PO
== END ==
LOC: M ONCR 09-18 11:24
PROVIDERS: ATTEND General Practice
DX: C61 Malignant neoplasm of prostate (principal)

== ENCOUNTER 2022-10-27 08:53 | Outpatient (RCR) | payer MEDICARE, BC | END 2022-11-10 | LOC: M ONCR 08:53 | PROVIDERS: ATTEND General Practice | DX: C61 Malignant neoplasm of prostate (principal) ==

== ENCOUNTER → 2022-10-30 | Outpatient (REF) | payer MEDICARE, BC ==
[2022-10-30 19:44] LABS: PROSTATIC SPECIFIC AG MONITOR 0.35 NG/ML (< 4.00)
[2022-10-30 19:46] LABS: ALBUMIN 3.3 G/DL (3.2-5.2); ALKALINE PHOSPHATASE 106 U/L (46-116); ALT/SGPT 497 U/L (7.0-40); AST/SGOT 152 U/L (<34); BILIRUBIN,TOTAL 0.6 MG/DL (0.3-1.2); BLOOD UREA NITROGEN 19 MG/DL (9-23); CARBON DIOXIDE LEVEL 30 MMOL/L (20-31); CHLORIDE LEVEL 106 MMOL/L (98-107); CREATININE FOR GFR 0.71 MG/DL (0.70-1.30); GLOMERULAR FILTRATION RATE > 60.0 (>49); GLUCOSE, FASTING 69 MG/DL (74-106); POTASSIUM SERUM 4.4 MMOL/L (3.5-5.1); SODIUM LEVEL 141 MMOL/L (136-145); TOTAL PROTEIN 6.2 G/DL (5.7-8.2)
[2022-10-30 19:51] LABS: TESTOSTERONE < 7 NG/DL (241-827)
== END ==
LOC: M LABDRAWC 18:04
PROVIDERS: ATTEND General Practice
DX: C61 Malignant neoplasm of prostate (principal)

== ENCOUNTER → 2022-11-15 | Outpatient (REF) | payer MEDICARE, BC ==
[2022-11-15 13:18] LABS: ALBUMIN 3.6 G/DL (3.2-5.2); ALKALINE PHOSPHATASE 99 U/L (46-116); ALT/SGPT 54 U/L (7.0-40); AST/SGOT 28 U/L (<34); BILIRUBIN,TOTAL 0.4 MG/DL (0.3-1.2); BLOOD UREA NITROGEN 19 MG/DL (9-23); CALCIUM LEVEL 8.9 MG/DL (8.3-10.6); CARBON DIOXIDE LEVEL 30 MMOL/L (20-31); CHLORIDE LEVEL 103 MMOL/L (98-107); CREATININE FOR GFR 0.85 MG/DL (0.70-1.30); GLOMERULAR FILTRATION RATE > 60.0 (>49); GLUCOSE, FASTING 91 MG/DL (74-106); POTASSIUM SERUM 4.5 MMOL/L (3.5-5.1); SODIUM LEVEL 139 MMOL/L (136-145); TOTAL PROTEIN 6.4 G/DL (5.7-8.2)
== END ==
LOC: M LABDRAWC 11:36
PROVIDERS: ATTEND General Practice
DX: C61 Malignant neoplasm of prostate (principal)

== ENCOUNTER → 2022-11-17 | Outpatient (CLI) | payer MEDICARE, BC | LOC: M ONCR 08:54 | PROVIDERS: ATTEND General Practice | DX: Z01.89 Encounter for other specified special examinations (principal) ==

== ENCOUNTER → 2022-11-30 | Outpatient (REF) | payer MEDICARE, BC ==
[2022-11-30 12:35] LABS: ALBUMIN 3.5 G/DL (3.2-5.2); ALKALINE PHOSPHATASE 105 U/L (46-116); ALT/SGPT 28 U/L (7.0-40); AST/SGOT 23 U/L (<34); BILIRUBIN,TOTAL 0.4 MG/DL (0.3-1.2); BLOOD UREA NITROGEN 21 MG/DL (9-23); CARBON DIOXIDE LEVEL 28 MMOL/L (20-31); CHLORIDE LEVEL 104 MMOL/L (98-107); CREATININE FOR GFR 0.79 MG/DL (0.70-1.30); GLOMERULAR FILTRATION RATE > 60.0 (>49); GLUCOSE, FASTING 86 MG/DL (74-106); POTASSIUM SERUM 4.1 MMOL/L (3.5-5.1); SODIUM LEVEL 137 MMOL/L (136-145); TOTAL PROTEIN 6.5 G/DL (5.7-8.2)
== END ==
LOC: M LABDRAWC 11:34
PROVIDERS: ATTEND General Practice
DX: C61 Malignant neoplasm of prostate (principal)

== ENCOUNTER → 2022-12-26 | Outpatient (REF) | payer MEDICARE, BC ==
[2022-12-26 12:46] LABS: ALBUMIN 3.4 G/DL (3.2-5.2); ALKALINE PHOSPHATASE 99 U/L (46-116); ALT/SGPT 27 U/L (7.0-40); AST/SGOT 27 U/L (<34); BILIRUBIN,TOTAL 0.6 MG/DL (0.3-1.2); BLOOD UREA NITROGEN 15 MG/DL (9-23); CARBON DIOXIDE LEVEL 26 MMOL/L (20-31); CHLORIDE LEVEL 105 MMOL/L (98-107); CREATININE FOR GFR 0.89 MG/DL (0.70-1.30); GLOMERULAR FILTRATION RATE > 60.0 (>49); GLUCOSE, FASTING 97 MG/DL (74-106); SODIUM LEVEL 140 MMOL/L (136-145); TOTAL PROTEIN 6.2 G/DL (5.7-8.2)
== END ==
LOC: M LABDRAWC 11:31
PROVIDERS: ATTEND General Practice
DX: C61 Malignant neoplasm of prostate (principal)

== ENCOUNTER → 2023-01-26 | Outpatient (CLI) | payer MEDICARE, BC | LOC: M ONCR 09:06 | PROVIDERS: ATTEND General Practice | DX: C61 Malignant neoplasm of prostate (principal); C77.5 Secondary and unspecified malignant neoplasm of intrapelvic lymph nodes; Z71.2 Person consulting for explanation of examination or test findings; Z79.52 Long term (current) use of systemic steroids; Z79.899 Other long term (current) drug therapy; Z79.818 Long term (current) use of other agents affecting estrogen receptors and estrogen levels; Z87.891 Personal history of nicotine dependence; Z92.29 Personal history of other drug therapy; Z92.3 Personal history of irradiation ==

== ENCOUNTER → 2023-02-01 | Outpatient (REF) | payer MEDICARE, BC | LOC: M LABSMT 09:00 | PROVIDERS: ATTEND Urology | DX: C61 Malignant neoplasm of prostate (principal) ==

== ENCOUNTER → 2023-02-05 | Outpatient (CLI) | payer MEDICARE, BC | LOC: M CLY 14:24 | PROVIDERS: ATTEND Physician Assistant | DX: R05.1 Acute cough (principal) ==

== ENCOUNTER → 2023-02-23 | Outpatient (REF) | payer MEDICARE, BC | LOC: M LABDRAWC 16:57 | PROVIDERS: ATTEND Nurse Practitioner Family | DX: Z79.899 Other long term (current) drug therapy (principal); B96.81 Helicobacter pylori [H. pylori] as the cause of diseases classified elsewhere ==

== ENCOUNTER → 2023-05-16 | Outpatient (CLI) | payer MEDICARE, BC | LOC: M ONCR 09:57 | PROVIDERS: ATTEND General Practice | DX: C61 Malignant neoplasm of prostate (principal); R35.1 Nocturia; R59.0 Localized enlarged lymph nodes; Z71.2 Person consulting for explanation of examination or test findings; Z79.52 Long term (current) use of systemic steroids; Z79.818 Long term (current) use of other agents affecting estrogen receptors and estrogen levels; Z79.899 Other long term (current) drug therapy; Z87.891 Personal history of nicotine dependence; Z92.3 Personal history of irradiation ==

== ENCOUNTER → 2023-05-24 | Outpatient (REF) | payer MEDICARE, BC | LOC: M SFHCDERM 18:05 | PROVIDERS: ATTEND Physician Assistant | DX: C44.519 Basal cell carcinoma of skin of other part of trunk (principal) ==

== ENCOUNTER → 2023-05-25 | Outpatient (REF) | payer MEDICARE, BC ==
[2023-05-25 18:53] LABS: BLOOD UREA NITROGEN 19 MG/DL (9-23); CALCIUM LEVEL 9.2 MG/DL (8.3-10.6); CARBON DIOXIDE LEVEL 31 MMOL/L (20-31); CHLORIDE LEVEL 104 MMOL/L (98-107); CREATININE FOR GFR 0.71 MG/DL (0.70-1.30); GLOMERULAR FILTRATION RATE > 60.0 (>49); GLUCOSE, FASTING 81 MG/DL (74-106); POTASSIUM SERUM 4.8 MMOL/L (3.5-5.1); SODIUM LEVEL 140 MMOL/L (136-145)
== END ==
LOC: M SFHCCLAY 09:39
PROVIDERS: ATTEND Nurse Practitioner Family
DX: R91.1 Solitary pulmonary nodule (principal)

== ENCOUNTER → 2023-05-29 | Outpatient (CLI) | payer MEDICARE, BC ==
[~2023-05-29] MED LIST changes: +ISOVUE-370 76% 100ML VIAL ONE
== END ==
LOC: M PLAIMG 10:13
PROVIDERS: ATTEND Nurse Practitioner Family
DX: R91.1 Solitary pulmonary nodule (principal)
CPT/HCPCS: 71260; Q9967

== ENCOUNTER → 2023-06-07 | Outpatient (CLI) | payer MEDICARE, BC ==
[~2023-06-07] MED LIST changes: -ISOVUE-370 76% 100ML VIAL ONE
== END ==
LOC: M RAD 08:28
PROVIDERS: ATTEND Nurse Practitioner Family
DX: K76.89 Other specified diseases of liver (principal)

== ENCOUNTER → 2023-07-27 | Outpatient (REF) | payer MEDICARE, BC ==
[2023-07-27 18:47] LABS: FOLATE > 24.0 NG/ML (>5.4); VITAMIN B12 LEVEL 455 PG/ML (211-911)
== END ==
LOC: M LABDRAWC 17:20
PROVIDERS: ATTEND Psychiatry & Neurology Neurology
DX: E53.8 Deficiency of other specified B group vitamins (principal); R41.3 Other amnesia; R97.20 Elevated prostate specific antigen [PSA]; E78.00 Pure hypercholesterolemia, unspecified; E78.5 Hyperlipidemia, unspecified; C61 Malignant neoplasm of prostate; F32.A Depression, unspecified

== ENCOUNTER → 2023-07-27 | Outpatient (REF) | payer MEDICARE, BC ==
[2023-07-27 18:44] LABS: ALBUMIN 3.6 G/DL (3.2-5.2); ALKALINE PHOSPHATASE 92 U/L (46-116); ALT/SGPT 23 U/L (7.0-40); AST/SGOT 24 U/L (<34); BILIRUBIN,TOTAL 0.5 MG/DL (0.3-1.2); BLOOD UREA NITROGEN 25 MG/DL (9-23); CALCIUM LEVEL 10.3 MG/DL (8.3-10.6); CARBON DIOXIDE LEVEL 29 MMOL/L (20-31); CHLORIDE LEVEL 104 MMOL/L (98-107); CHOLESTEROL LEVEL 227 MG/DL (<200); CHOLESTEROL RISK RATIO 3.57 (<5); CREATININE FOR GFR 0.75 MG/DL (0.70-1.30); GLOMERULAR FILTRATION RATE > 60.0 (>49); GLUCOSE, FASTING 91 MG/DL (74-106); HDL CHOLESTEROL 63.5 MG/DL (>40); LDL CHOLESTEROL 137.3 MG/DL (<100); NON-HDL-C 163.5 MG/DL; POTASSIUM SERUM 4.2 MMOL/L (3.5-5.1); SODIUM LEVEL 140 MMOL/L (136-145); TOTAL PROTEIN 6.5 G/DL (5.7-8.2); TRIGLYCERIDES LEVEL 131 MG/DL (<150)
[2023-07-27 18:46] LABS: FREE T4 1.11 NG/DL (0.89-1.76); THYROID STIMULATING HORMONE 1.356 uIU/ML (0.55-4.78)
== END ==
LOC: M SFHCCLAY 09:34
PROVIDERS: ATTEND Nurse Practitioner Family
DX: E78.5 Hyperlipidemia, unspecified (principal); C61 Malignant neoplasm of prostate; F32.A Depression, unspecified

== ENCOUNTER → 2023-08-17 | Outpatient (CLI) | payer MEDICARE, BC | LOC: M ONCR 09:56 | PROVIDERS: ATTEND General Practice | DX: C77.5 Secondary and unspecified malignant neoplasm of intrapelvic lymph nodes (principal); I10 Essential (primary) hypertension; R35.1 Nocturia; Z72.0 Tobacco use; Z79.899 Other long term (current) drug therapy; Z85.46 Personal history of malignant neoplasm of prostate ==

== ENCOUNTER → 2023-10-19 | Outpatient (REF) | payer MEDICARE, BC | LOC: M SFHCCLAY 08:47 | PROVIDERS: ATTEND Urology | DX: C61 Malignant neoplasm of prostate (principal) ==

== ENCOUNTER → 2023-11-15 | Outpatient (REF) | payer MEDICARE, BC ==
[2023-11-15 18:08] LABS: ALBUMIN 3.3 G/DL (3.2-5.2); ALKALINE PHOSPHATASE 96 U/L (46-116); ALT/SGPT 20 U/L (7.0-40); AST/SGOT 22 U/L (<34); BILIRUBIN,TOTAL 0.3 MG/DL (0.3-1.2); BLOOD UREA NITROGEN 23 MG/DL (9-23); CALCIUM LEVEL 9.3 MG/DL (8.3-10.6); CARBON DIOXIDE LEVEL 27 MMOL/L (20-31); CHLORIDE LEVEL 105 MMOL/L (98-107); CREATININE FOR GFR 0.74 MG/DL (0.70-1.30); GLOMERULAR FILTRATION RATE > 60.0 (>49); GLUCOSE, FASTING 116 MG/DL (74-106); POTASSIUM SERUM 4.2 MMOL/L (3.5-5.1); PROSTATIC SPECIFIC AG MONITOR 0.06 NG/ML (< 4.00); SODIUM LEVEL 136 MMOL/L (136-145)
[2023-11-15 18:14] LABS: TESTOSTERONE < 7 NG/DL (241-827)
== END ==
LOC: M LABDRAWC 17:08
PROVIDERS: ATTEND General Practice
DX: C61 Malignant neoplasm of prostate (principal)

== ENCOUNTER → 2023-11-16 | Outpatient (CLI) | payer MEDICARE, BC | LOC: M ONCR 09:29 | PROVIDERS: ATTEND General Practice | DX: C61 Malignant neoplasm of prostate (principal); Z71.2 Person consulting for explanation of examination or test findings; Z79.899 Other long term (current) drug therapy; Z79.52 Long term (current) use of systemic steroids; Z79.818 Long term (current) use of other agents affecting estrogen receptors and estrogen levels; Z87.891 Personal history of nicotine dependence; Z92.3 Personal history of irradiation ==

== ENCOUNTER → 2023-11-21 | Outpatient (REF) | payer MEDICARE, BC ==
[2023-11-21 18:52] LABS: ALBUMIN 3.6 G/DL (3.2-5.2); ALKALINE PHOSPHATASE 93 U/L (46-116); ALT/SGPT 22 U/L (7.0-40); AST/SGOT 22 U/L (<34); BILIRUBIN,TOTAL 0.6 MG/DL (0.3-1.2); BLOOD UREA NITROGEN 27 MG/DL (9-23); CALCIUM LEVEL 9.7 MG/DL (8.3-10.6); CARBON DIOXIDE LEVEL 29 MMOL/L (20-31); CHLORIDE LEVEL 100 MMOL/L (98-107); CHOLESTEROL LEVEL 196 MG/DL (<200); CREATININE FOR GFR 0.92 MG/DL (0.70-1.30); FREE T4 1.06 NG/DL (0.89-1.76); GLOMERULAR FILTRATION RATE > 60.0 (>49); GLUCOSE, FASTING 107 MG/DL (74-106); HDL CHOLESTEROL 51.5 MG/DL (>40); LDL CHOLESTEROL 112.3 MG/DL (<100); NON-HDL-C 144.5 MG/DL; POTASSIUM SERUM 4.2 MMOL/L (3.5-5.1); SODIUM LEVEL 135 MMOL/L (136-145); THYROID STIMULATING HORMONE 2.224 uIU/ML (0.55-4.78); TOTAL PROTEIN 6.5 G/DL (5.7-8.2); TRIGLYCERIDES LEVEL 161 MG/DL (<150)
[2023-11-21 18:58] LABS: HEMOGLOBIN A1c 5.8 % (4.0-6.0)
== END ==
LOC: M SFHCCLAY 09:51
PROVIDERS: ATTEND Nurse Practitioner Family
DX: R91.1 Solitary pulmonary nodule (principal); F32.A Depression, unspecified; R41.3 Other amnesia; E66.09 Other obesity due to excess calories; Z68.29 Body mass index [BMI] 29.0-29.9, adult; Z79.899 Other long term (current) drug therapy

== ENCOUNTER → 2024-02-19 | Outpatient (REF) | payer MEDICARE, BC ==
[~2024-02-19] MED LIST changes: +PRED5TA PO
[2024-02-19 18:53] LABS: PROSTATIC SPECIFIC AG MONITOR 0.04 NG/ML (< 4.00)
[2024-02-19 19:01] LABS: ALBUMIN 3.4 G/DL (3.2-5.2); ALKALINE PHOSPHATASE 93 U/L (46-116); ALT/SGPT 19 U/L (7.0-40); AST/SGOT 12 U/L (<34); BILIRUBIN,TOTAL 0.3 MG/DL (0.3-1.2); BLOOD UREA NITROGEN 25 MG/DL (9-23); CALCIUM LEVEL 9.6 MG/DL (8.3-10.6); CARBON DIOXIDE LEVEL 28 MMOL/L (20-31); CHLORIDE LEVEL 106 MMOL/L (98-107); GLOMERULAR FILTRATION RATE > 60.0 (>49); GLUCOSE, FASTING 74 MG/DL (74-106); POTASSIUM SERUM 4.5 MMOL/L (3.5-5.1); SODIUM LEVEL 141 MMOL/L (136-145)
[2024-02-19 19:17] LABS: TESTOSTERONE < 7 NG/DL (241-827)
== END ==
LOC: M LABDRAWC 17:23
PROVIDERS: ATTEND General Practice
DX: C61 Malignant neoplasm of prostate (principal)

== ENCOUNTER → 2024-02-22 | Outpatient (CLI) | payer MEDICARE, BC ==
[~2024-02-22] MED LIST changes: +OXYB-54 PO; +PANT40TA29 PO
== END ==
LOC: M ONCR 09:55
PROVIDERS: ATTEND General Practice
DX: C61 Malignant neoplasm of prostate (principal); C77.5 Secondary and unspecified malignant neoplasm of intrapelvic lymph nodes; R05.9 Cough, unspecified; R23.2 Flushing; R39.15 Urgency of urination; Z79.818 Long term (current) use of other agents affecting estrogen receptors and estrogen levels; Z79.899 Other long term (current) drug therapy; Z87.891 Personal history of nicotine dependence; Z92.3 Personal history of irradiation

== ENCOUNTER → 2024-02-26 | Outpatient (REF) | payer MEDICARE, BC ==
[2024-02-26 18:14] LABS: PROSTATIC SPECIFIC AG MONITOR 0.04 NG/ML (< 4.00)
[2024-02-26 18:19] LABS: ALBUMIN 3.6 G/DL (3.2-5.2); ALKALINE PHOSPHATASE 83 U/L (46-116); ALT/SGPT 16 U/L (7.0-40); AST/SGOT 12 U/L (<34); BILIRUBIN,TOTAL 0.4 MG/DL (0.3-1.2); BLOOD UREA NITROGEN 23 MG/DL (9-23); CALCIUM LEVEL 9.3 MG/DL (8.3-10.6); CARBON DIOXIDE LEVEL 29 MMOL/L (20-31); CHLORIDE LEVEL 105 MMOL/L (98-107); CREATININE FOR GFR 0.88 MG/DL (0.70-1.30); GLOMERULAR FILTRATION RATE > 60.0 (>49); GLUCOSE, FASTING 93 MG/DL (74-106); POTASSIUM SERUM 4.1 MMOL/L (3.5-5.1); SODIUM LEVEL 140 MMOL/L (136-145); TOTAL PROTEIN 6.2 G/DL (5.7-8.2)
== END ==
LOC: M LAB REF 17:01
PROVIDERS: ATTEND General Practice
DX: C61 Malignant neoplasm of prostate (principal)

== ENCOUNTER → 2024-02-27 | Outpatient (CLI) | payer MEDICARE, BC | LOC: M CLY 13:29 | PROVIDERS: ATTEND General Practice | DX: C61 Malignant neoplasm of prostate (principal) ==

== ENCOUNTER → 2024-05-07 | Outpatient (REF) | payer MEDICARE, BC ==
[2024-05-07 18:15] LABS: ALBUMIN 3.6 G/DL (3.2-5.2); ALKALINE PHOSPHATASE 98 U/L (46-116); ALT/SGPT 21 U/L (7.0-40); AST/SGOT 20 U/L (<34); BILIRUBIN,TOTAL 0.4 MG/DL (0.3-1.2); BLOOD UREA NITROGEN 24 MG/DL (9-23); CALCIUM LEVEL 9.8 MG/DL (8.3-10.6); CARBON DIOXIDE LEVEL 30 MMOL/L (20-31); CHLORIDE LEVEL 105 MMOL/L (98-107); CHOLESTEROL LEVEL 189 MG/DL (<200); CHOLESTEROL RISK RATIO 3.91 (<5); CREATININE FOR GFR 0.97 MG/DL (0.70-1.30); GLOMERULAR FILTRATION RATE > 60.0 (>42); GLUCOSE, FASTING 95 MG/DL (74-106); HDL CHOLESTEROL 48.3 MG/DL (>40); LDL CHOLESTEROL 122.1 MG/DL (<100); NON-HDL-C 140.7 MG/DL; POTASSIUM SERUM 4.1 MMOL/L (3.5-5.1); SODIUM LEVEL 138 MMOL/L (136-145); TOTAL PROTEIN 6.5 G/DL (5.7-8.2); TRIGLYCERIDES LEVEL 93 MG/DL (<150)
[2024-05-07 18:55] LABS: HEMOGLOBIN A1c 5.5 % (4.0-6.0)
== END ==
LOC: M SFHCCLAY 09:07
PROVIDERS: ATTEND Nurse Practitioner Family
DX: F32.A Depression, unspecified (principal); R41.3 Other amnesia; E66.09 Other obesity due to excess calories; Z68.29 Body mass index [BMI] 29.0-29.9, adult; R73.03 Prediabetes; E78.5 Hyperlipidemia, unspecified; I10 Essential (primary) hypertension

== ENCOUNTER → 2024-05-26 | Outpatient (REF) | payer MEDICARE, BC | LOC: M SFHCWAGY 17:14 | PROVIDERS: ATTEND Physician Assistant | DX: D22.62 Melanocytic nevi of left upper limb, including shoulder (principal); L82.0 Inflamed seborrheic keratosis; L85.9 Epidermal thickening, unspecified ==

== ENCOUNTER → 2024-06-16 | Outpatient (REF) | payer MEDICARE, BC ==
[2024-06-16 13:07] LABS: ALBUMIN 3.5 G/DL (3.2-5.2); ALKALINE PHOSPHATASE 96 U/L (40-129); ALT/SGPT 17 U/L (7.0-40); AST/SGOT 15 U/L (<34); BILIRUBIN,TOTAL 0.6 MG/DL (0.3-1.2); BLOOD UREA NITROGEN 18 MG/DL (9-23); CARBON DIOXIDE LEVEL 32 MMOL/L (20-31); CHLORIDE LEVEL 102 MMOL/L (98-107); CREATININE FOR GFR 0.98 MG/DL (0.70-1.30); GLOMERULAR FILTRATION RATE > 60.0 (>42); GLUCOSE, FASTING 102 MG/DL (74-106); POTASSIUM SERUM 3.6 MMOL/L (3.5-5.1); PROSTATIC SPECIFIC AG MONITOR 0.05 NG/ML (< 4.00); SODIUM LEVEL 138 MMOL/L (136-145); TOTAL PROTEIN 6.6 G/DL (5.7-8.2)
[2024-06-16 13:11] LABS: TESTOSTERONE < 7 NG/DL (241-827)
== END ==
LOC: M LABDRAWP 11:33
PROVIDERS: ATTEND General Practice
DX: C61 Malignant neoplasm of prostate (principal)

== ENCOUNTER → 2024-06-24 | Outpatient (CLI) | payer MEDICARE, BC ==
[~2024-06-24] MED LIST changes: +ATOR-398 PO; -LIPI80TA PO
== END ==
LOC: M ONCR 15:25
PROVIDERS: ATTEND General Practice
DX: R59.0 Localized enlarged lymph nodes (principal); Z79.899 Other long term (current) drug therapy; Z85.46 Personal history of malignant neoplasm of prostate; Z87.891 Personal history of nicotine dependence; Z92.3 Personal history of irradiation

== ENCOUNTER → 2024-07-30 | Outpatient (REF) | payer MEDICARE, BC | LOC: M SFHCCLAY 09:58 | PROVIDERS: ATTEND Nurse Practitioner Family | DX: E66.9 Obesity, unspecified (principal); F32.A Depression, unspecified; R41.3 Other amnesia; E66.09 Other obesity due to excess calories; Z68.29 Body mass index [BMI] 29.0-29.9, adult; R73.03 Prediabetes; E78.5 Hyperlipidemia, unspecified; I10 Essential (primary) hypertension ==

== ENCOUNTER → 2024-09-22 | Outpatient (REF) | payer MEDICARE, BC ==
[2024-09-22 19:08] LABS: PROSTATIC SPECIFIC AG MONITOR 0.05 NG/ML (< 4.00)
[2024-09-22 19:15] LABS: ALBUMIN 3.2 G/DL (3.2-5.2); ALKALINE PHOSPHATASE 79 U/L (40-129); ALT/SGPT 13 U/L (7.0-40); AST/SGOT 20 U/L (<34); BILIRUBIN,TOTAL 0.5 MG/DL (0.3-1.2); BLOOD UREA NITROGEN 17 MG/DL (9-23); CALCIUM LEVEL 8.8 MG/DL (8.3-10.6); CARBON DIOXIDE LEVEL 29 MMOL/L (20-31); CHLORIDE LEVEL 103 MMOL/L (98-107); CREATININE FOR GFR 0.86 MG/DL (0.70-1.30); GLOMERULAR FILTRATION RATE > 60.0 (>42); GLUCOSE, FASTING 85 MG/DL (74-106); POTASSIUM SERUM 4.5 MMOL/L (3.5-5.1); SODIUM LEVEL 141 MMOL/L (136-145); TOTAL PROTEIN 5.8 G/DL (5.7-8.2)
[2024-09-22 19:29] LABS: TESTOSTERONE < 7 NG/DL (241-827)
== END ==
LOC: M LABDRAWC 16:41
PROVIDERS: ATTEND General Practice
DX: C61 Malignant neoplasm of prostate (principal)

== ENCOUNTER → 2024-09-24 | Outpatient (CLI) | payer MEDICARE, BC ==
[~2024-09-24] MED LIST changes: -ABIR250T PO; +ABIR250T2 PO; +PRED1TABL PO
== END ==
LOC: M ONCR 09:56
PROVIDERS: ATTEND General Practice
DX: C61 Malignant neoplasm of prostate (principal); C77.5 Secondary and unspecified malignant neoplasm of intrapelvic lymph nodes; Z92.3 Personal history of irradiation; Z79.52 Long term (current) use of systemic steroids; Z79.85 Long-term (current) use of injectable non-insulin antidiabetic drugs; Z87.891 Personal history of nicotine dependence; Z79.899 Other long term (current) drug therapy

== ENCOUNTER → 2024-11-28 | Outpatient (REF) | payer MEDICARE, BC ==
[2024-11-28 17:59] LABS: BASO % 1.4 % (0.0-1.0); EOS # 0.1 10^3/uL (0.0-0.5); EOS % 3.4 % (0.0-3.0); HEMATOCRIT 43.4 % (42.0-52.0); HEMOGLOBIN 14.4 g/dl (13.5-17.5); LYMPH # 0.5 10^3/uL (1.5-5.0); LYMPH % 16.8 % (24.0-44.0); MEAN CORPUSCULAR HEMOGLOBIN 30.7 pg (27.0-33.0); MEAN CORPUSCULAR HGB CONC 33.2 g/dl (32.0-36.5); MEAN CORPUSCULAR VOLUME 92.5 fl (80.0-96.0); MONO # 0.3 10^3/uL (0.0-0.8); MONO % 10.7 % (2.0-8.0); NEUTROPHILS % 67.4 % (36.0-66.0); PLATELET COUNT, AUTOMATED 198 10^3/uL (150-450); RED BLOOD COUNT 4.69 10^6/uL (4.30-6.10); WHITE BLOOD COUNT 2.9 10^3/uL (4.0-10.0)
[2024-11-28 18:03] LABS: IRON (FE) 83 UG/DL (65-175); PERCENT SATURATION 30.5 % (19.7-50.0); TOTAL IRON BINDING CAPACITY 272 UG/DL (250-425)
[2024-11-28 18:04] LABS: ALBUMIN 3.4 G/DL (3.2-5.2); ALKALINE PHOSPHATASE 76 U/L (40-129); ALT/SGPT 18 U/L (7.0-40); AST/SGOT 16 U/L (<34); BILIRUBIN,TOTAL 0.4 MG/DL (0.3-1.2); BLOOD UREA NITROGEN 21 MG/DL (9-23); CALCIUM LEVEL 9.1 MG/DL (8.3-10.6); CARBON DIOXIDE LEVEL 29 MMOL/L (20-31); CHLORIDE LEVEL 104 MMOL/L (98-107); CHOLESTEROL LEVEL 166 MG/DL (<200); CHOLESTEROL RISK RATIO 2.99 (<5); CREATININE FOR GFR 0.85 MG/DL (0.70-1.30); GLOMERULAR FILTRATION RATE > 90.0 (>42); GLUCOSE, FASTING 82 MG/DL (74-106); HDL CHOLESTEROL 55.5 MG/DL (>40); LDL CHOLESTEROL 95.3 MG/DL (<100); NON-HDL-C 110.5 MG/DL; POTASSIUM SERUM 4.5 MMOL/L (3.5-5.1); SODIUM LEVEL 137 MMOL/L (136-145); TOTAL PROTEIN 6.1 G/DL (5.7-8.2); TRIGLYCERIDES LEVEL 76 MG/DL (<150)
[2024-11-28 18:05] LABS: FERRITIN 117.1 NG/ML (10.5-307.3); FREE T4 1.11 NG/DL (0.89-1.76)
[2024-11-28 18:06] LABS: THYROID STIMULATING HORMONE 1.402 uIU/ML (0.55-4.78); VITAMIN B12 LEVEL 399 PG/ML (211-911)
== END ==
LOC: M SFHCCLAY 09:14
PROVIDERS: ATTEND Nurse Practitioner Family
DX: E66.09 Other obesity due to excess calories (principal); F32.A Depression, unspecified; R41.3 Other amnesia; Z68.29 Body mass index [BMI] 29.0-29.9, adult; R73.03 Prediabetes; E78.5 Hyperlipidemia, unspecified; I10 Essential (primary) hypertension; R53.83 Other fatigue

== ENCOUNTER → 2025-03-18 | Outpatient (REF) | payer MEDICARE, BC ==
[~2025-03-18] MED LIST changes: +PRED-1142 PO; -PRED1TABL PO
== END ==
LOC: M SFHCCLAY 09:39
PROVIDERS: ATTEND Urology
DX: C61 Malignant neoplasm of prostate (principal)

== ENCOUNTER → 2025-03-24 | Outpatient (CLI) | payer MEDICARE, BC | PROVIDERS: ATTEND General Practice | DX: Z08 Encounter for follow-up examination after completed treatment for malignant neoplasm (principal); Z85.46 Personal history of malignant neoplasm of prostate; Z79.899 Other long term (current) drug therapy; Z85.79 Personal history of other malignant neoplasms of lymphoid, hematopoietic and related tissues; Z87.891 Personal history of nicotine dependence; Z92.29 Personal history of other drug therapy; Z92.3 Personal history of irradiation ==